=== PATIENT | male | born 1970 | race Caucasian/White ===

== ENCOUNTER 2017-06-28 07:45 | Observation (INO) | payer MEDICAID ==
[~2017-06-28] VITALS: Ht 167.6 cm; Wt 18.8 kg
[2017-06-28 07:49] VITALS: Ht 167.6 cm; Wt 18.8 kg
[2017-06-28] MEDS ORDERED: NITROGLYCERIN 2% 1 GM OINT PKT TD STA (08:19)
[2017-06-28] MEDS ORDERED: ASPIRIN 325 MG TAB PO STA (08:19)
--- NOTE | 2017-06-28 08:47 | ERA ---
ER Documentation Chief Complaint Date/Time DATE: 06/28/17 TIME: 08:44 Chief Complaint Complais of chest pain and palpitations HPI This is a 46-year-old male who states he was awoke at 5:30 AM this morning today with substernal chest pain. He describes the pain as a pressure and sharp stabbing pain with shortness of breath. He is not diaphoretic and had no dizziness but did have palpitations. The patient's father of sudden myocardial infarction at the age of 45. Patient does not know if he has high cholesterol or hypertension or diabetes. The patient does smoke. He said the pain lasted 30 minutes and it did not radiate anywhere. He is currently pain- free. ROS All systems reviewed and are negative except as per history of present illness. Medications Home Meds No Active Prescriptions or Reported Meds Allergies Allergies: Coded Allergies: No Known Allergy (Unverified , 06/28/17) PMhx/Soc Medical and Surgical Hx: pt denies Medical Hx, pt denies Surgical Hx Hx Alcohol Use: No Hx Substance Use: No Hx Tobacco Use: No Smoking Status: Never smoker FmHx Family History: No coronary disease Physical Exam Vitals Vital Signs Date Time Temp Pulse Resp B/P Pulse Ox O2 Delivery O2 Flow Rate FiO2 06/28/17 09:43 63 18 112/73 Room Air 06/28/17 08:26 Nasal Cannula 06/28/17 07:49 98.0 75 20 124/77 100 Physical Exam Const: [] Head: Atraumatic normocephalic Eyes: Normal Conjunctiva, PERRLA, ENT: Normal External Ears, Nose and Mouth. Neck: Full range of motion..~ No meningismus. Resp: Clear to auscultation bilaterally, no increased work of breathing Cardio: Regular rate and rhythm, no murmurs Abd: Soft, non tender, non distended. Normal bowel sounds Skin: No petechiae or rashes Back: No midline or flank tenderness Ext: No cyanosis, or edema Neur: Awake and alert, strength 5/5 sensation intact Psych: Normal Mood and Affect Result Diagram: 06/28/17 0822 06/28/17 0950 Results 24 hrs Laboratory Tests Test 06/28/17 08:22 06/28/17 09:50 White Blood Count 5.910^3/ul Red Blood Count 4.8910^6/ul Hemoglobin 15.3g/dl Hematocrit 44.7% Mean Corpuscular Volume 91.4fl Mean Corpuscular Hemoglobin 31.3pg Mean Corpuscular Hemoglobin Concent 34.2g/dl Red Cell Distribution Width 12.8% Platelet Count 40293^3/UL Mean Platelet Volume 9.7fl Neutrophils % 55.3% Lymphocytes % 30.8% Monocytes % 11.0% Eosinophils % 1.9% Basophils % 0.8% Nucleated Red Blood Cells % 0.0/100WBC Neutrophils # 3.310^3/ul Lymphocytes # 1.810^3/ul Monocytes # 0.710^3/ul Eosinophils # 0.110^3/ul Basophils # 0.110^3/ul Nucleated Red Blood Cells # 0.010^3/ul Prothrombin Time 12.4Sec Prothrombin Time Ratio 1.0 INR International Normalized Ratio 0.92 Activated Partial Thromboplast Time 32.0Sec Sodium Level 140mmol/L Potassium Level 4.1mmol/L Chloride Level 98mmol/L Carbon Dioxide Level 28mmol/L Anion Gap 18 Blood Urea Nitrogen 14mg/dl Creatinine 0.64mg/dl Glucose Level 100mg/dl Calcium Level 9.1mg/dl Total Bilirubin 0.5mg/dl Direct Bilirubin 0.00mg/dl Indirect Bilirubin 0.5mg/dl Aspartate Amino Transf (AST/SGOT) 38IU/L Alanine Aminotransferase (ALT/SGPT) 46IU/L Alkaline Phosphatase 65IU/L Troponin I < 0.012ng/ml Total Protein 7.0g/dl Albumin 4.1g/dl Globulin 2.90g/dl Albumin/Globulin Ratio 1.41 Current Medications Medications (Trade) Dose Ordered Sig/Li Route PRN Reason Start Time Stop Time Status Last Admin Dose Admin Aspirin (Aspirin) 325 mg ONCE STAT PO 06/28/17 08:19 06/28/17 08:21 DC 06/28/17 08:31 Nitroglycerin (Nitroglycerin 2% Oint) 1 inch ONCE STAT TD 06/28/17 08:19 06/28/17 08:21 DC 06/28/17 08:32 Procedures/MDM : Normal sinus rhythm heart rate 63, normal axis normal intervals normal OR QRS and QT. Impression normal EKG Chest x-ray is currently Patient received aspirin and nitroglycerin to chest wall We will admit the patient for cardiac workup due to smoking and strong family history of heart disease. Departure Diagnosis: Primary Impression: Chest pain Qualified Code: R07.9 - Chest pain, unspecified type Condition: Stable NILE OCONNOR DO Jun 28, 2017 08:47
--- NOTE | 2017-06-28 08:48 | RADRPT ---
PROCEDURE: Chest Radiograph. CLINICAL INDICATION: Chest pain TECHNIQUE: Single frontal chest radiograph. COMPARISON: None available FINDINGS: The cardiomediastinal silhouette is within normal limits. There is a 1.2 cm nodule overlying the le ft lateral lung base likely indicative of a nipple shadow. Are otherwise clear. No infiltrate or ef fusion is seen. The bones are intact. IMPRESSION: 1. 1.2 cm nodule overlying the left lateral lung base likely related to a nipple shadow. Recommend repeat chest radiograph with nipple markers as clinically indicated. 2. No evidence of acute cardiopulmonary disease. RPTAT: AA .Lucas Dodge MD, MD Date Time Electronically viewed and signed by .Lucas Dodge MD, on 06/28/2017 08:47 .B/
[2017-06-28 08:52] LABS: BASOPHIL # 0.1 10^3/ul (0.0-0.1); BASOPHILS % 0.8 % (0.0-2.0); EOSINOPHILS # 0.1 10^3/ul (0.0-0.5); EOSINOPHILS % 1.9 % (0.0-7.0); HEMATOCRIT 44.7 % (42.0-52.0); HEMOGLOBIN 15.3 g/dl (14.0-18.0); LYMPHOCYTES # 1.8 10^3/ul (0.8-2.9); LYMPHOCYTES % 30.8 % (15.0-51.0); MEAN CORPUSCULAR HEMOGLOBIN 31.3 pg (29.0-33.0); MEAN CORPUSCULAR HGB CONC 34.2 g/dl (32.0-37.0); MEAN CORPUSCULAR VOLUME 91.4 fl (82.0-101.0); MEAN PLATELET VOLUME 9.7 fl (7.4-10.4); MONOCYTE # 0.7 10^3/ul (0.3-0.9); NEUTROPHIL # 3.3 10^3/ul (1.6-7.5); NEUTROPHILS % 55.3 % (39.0-77.0); PLATELET COUNT 238 10^3/UL (140-415); RED BLOOD COUNT 4.89 10^6/ul (4.70-6.10); RED CELL DISTRIBUTION WIDTH 12.8 % (11.5-14.5); WHITE BLOOD COUNT 5.9 10^3/ul (4.8-10.8)
[2017-06-28 09:05] LABS: INR 0.92; PROTIME 12.4 Sec (12.2-14.2)
[2017-06-28 10:23] LABS: ALANINE AMINOTRANSFERASE 46 IU/L (13-69); ALBUMIN 4.1 g/dl (3.3-4.9); ALBUMIN/GLOBULIN RATIO 1.41; ALKALINE PHOSPHATASE 65 IU/L (42-121); ANION GAP 18 (8-16); ASPARTATE AMINO TRANSFERASE 38 IU/L (15-46); BILIRUBIN,INDIRECT 0.5 mg/dl (0-1.1); BILIRUBIN,TOTAL 0.5 mg/dl (0.2-1.3); BLOOD UREA NITROGEN 14 mg/dl (7-20); CALCIUM 9.1 mg/dl (8.4-10.2); CARBON DIOXIDE 28 mmol/L (21-31); CHLORIDE 98 mmol/L (97-110); CREATININE 0.64 mg/dl (0.61-1.24); GLUCOSE 100 mg/dl (70-220); POTASSIUM 4.1 mmol/L (3.5-5.1); SODIUM 140 mmol/L (135-144)
[2017-06-28 10:35] LABS: TROPONIN-I < 0.012 ng/ml (0.00-0.12)
[2017-06-28] MEDS ORDERED: ONDANSETRON 4 MG INJ IV PRN ×2 (12:30→14:00)
[2017-06-28] MEDS ORDERED: ACETAMINOPHEN 325 MG TAB PO PRN ×2 (12:30→14:00)
--- NOTE | 2017-06-28 13:45 | HP ---
Date/Time of Note Date/Time of Note DATE: 06/28/17 TIME: 13:44 Assessment/Plan Lines/Catheters IV [facility]ter [facility]from [facility]): Saline Lock HPI/ROS Admit Date/Time Admit Date/Time Jun 28, 2017 at 12:05 PMH/Family/Social Social History Smoking Status: Never smoker Exam/Review of Systems Vital Signs Vitals Vital Signs Date Time Temp Pulse Resp B/P Pulse Ox O2 Delivery O2 Flow Rate FiO2 06/28/17 09:43 63 18 112/73 Room Air 06/28/17 07:49 98.0 100 Labs Result Diagram: 06/28/17 0822 06/28/17 0950 VENU SERRANO NP Jun 28, 2017 13:45
[2017-06-28 13:51] VITALS: BP 106/65; PULSE 67; RESP 8
--- NOTE | 2017-06-28 13:58 | HP ---
Date/Time of Note Date/Time of Note DATE: 06/28/17 TIME: 13:48 Assessment/Plan VTE Prophylaxis VTE Prophylaxis Intervention: SCD's Lines/Catheters IV Catheter Type (from Nrsg): Saline Lock Assessment/Plan Assessment/Plan This is a 46-year-old male with no significant past medical history but with a family history of his father of myocardial infarction at 45-year -old, is being admitted for observation for chest pain evaluation. 1. Chest pain, assess for significance. Patient symptoms most likely represents anxiety versus musculoskeletal in origin. However, we will rule out acute coronary syndrome due to positive family history. -Observation to telemetry for serial troponin 3, and serial EKG. -Patient will be continued on aspirin, nitroglycerin sublingual PRN and morphine PRN 2.1.2 cm nodule overlying the left lateral lung base likely related to a nipple shadow. We will repeat chest x-ray. Plan: Monitor patient for any reoccurrence of pain. Monitor EKGs. Follow-up with serial troponins. Will also obtain a baseline TSH, fasting lipid panel, A1c, vitamin D and B12 levels. Consider 2D echocardiogram if indicated. Plan is to discharge patient home in morning if serial troponins and EKGs are negative. Patient does not need any DVT or PUD prophylaxis at this time as he is ambulatory and is on a diet. Approximately 60 minutes was spent on this history and physical. Patient was seen in collaboration with Dr. Collins. HPI/ALLEN Admit Date/Time Admit Date/Time Jun 28, 2017 at 12:05 Hx of Present Illness This is a 46-year-old male with no significant past medical history, who presented to the emergency room for evaluation of chest pain. Patient reported that he was experiencing sharp stabbing pain for around 10 seconds duration which woke him up early in the morning. Patient denied any shortness of breath, diaphoresis, dizziness, loss of consciousness, numbness/tingling, weakness, nausea, vomiting, abdominal pain or other constitutional symptoms. He reported that he is dad of sudden myocardial infarction at the age of 45. He denied smoking history. 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 At my encounter with the patient, his chest pain was completely resolved. In the emergency room initial lab works within acceptable range with a negative troponin. EKG without any acute ST or T-wave changes. Patient received aspirin and nitroglycerin in the emergency room and was admitted to rule out ACS due to strong family history of heart disease. ROS A 12 point review of system was assessed and is negative other than what is mentioned in HPI PMH/Family/Social Past Medical History See HPI Past Surgical History See HPI Social History Patient denied history of smoking or illicit drug use. He drinks alcohol occasionally. Smoking Status: Never smoker Exam/Review of Systems Vital Signs Vitals Vital Signs Date Time Temp Pulse Resp B/P Pulse Ox O2 Delivery O2 Flow Rate FiO2 06/28/17 09:43 63 18 112/73 Room Air 06/28/17 07:49 98.0 100 Exam Exam General: Well developed,adequately built, not in any acute distress . HEENT: Normocephalic, Atraumatic, No laceration or hematoma; Eyes: PEERL, Conjunctiva clear, Anicteric sclera Neck: Supple without any lymphadenopathy, nontender, no JVD, no carotid bruits, trachea midline, no thyromegaly Cardiac: S1, S2 auscultated, regular rhythm and rate, no mumurs or gallop Pulmonary: Normal respiratory effort. Chest clear to auscultation bilaterally, no adventitious breath sounds GI: Abdomen normal to inspection. Soft, non tender, non- distended, no masses, no rebound tenderness or guarding. Bowel sounds active on all four quadrants Genitourinary: Deferred Extremities: No cyanosis, clubbing, or edema. Pulses [2+] bilaterally. Full ROM on all four extremities. No focal weakness appreciated. Neurologic: Slightly anxious +.alert to person, place, time, and situation. Affect appropriate, intact sensation. Skin: Clean,dry, and intact. No ecchymosis, no rashes, or lesions Labs Result Diagram: 06/28/17 0822 06/28/17 0950 Medications Medications Current Medications Ondansetron HCl (Zofran Inj) 4 mg Q6H PRN IV NAUSEA AND/OR VOMITING; Start 10/04 at 14:00 Acetaminophen (Tylenol Tab) 650 mg Q6H PRN PO PAIN LEVEL 1-3 OR FEVER; Start at 14:00 Morphine Sulfate (morphine) 2 mg Q4H PRN IV SEVERE PAIN LEVEL 7-10; Start 06/28 at 14:00 Aspirin (Aspirin) 81 mg DAILY PO ; Start 06/29/17 at 09:00 Nitroglycerin (Nitroglycerin (Sl Tab) 0.4 Mg) 1 tab Q5M PRN SL ANGINA; Start at 14:00 VENU SERRANO NP Jun 28, 2017 13:57
[2017-06-28] MEDS ORDERED: NACL 0.9% 3 ML SYG IV SCH (14:00)
[2017-06-28] MEDS ORDERED: NITROGLYCERIN (SL) 0.4 MG TAB SL PRN (14:00)
[2017-06-28] MEDS ORDERED: morphine 2 MG INJ IV PRN (14:00)
[2017-06-28 15:26] LABS: CREATINE KINASE 67 IU/L (23-200)
[2017-06-28 15:39] LABS: TROPONIN-I < 0.012 ng/ml (0.00-0.12)
[2017-06-28 15:57] VITALS: BP 112/57; RESP 17
[2017-06-28 16:55] VITALS: PULSE 96
[2017-06-28 20:09] VITALS: BP 111/62; PULSE 74; RESP 18
[2017-06-28 20:24] LABS: CREATINE KINASE 45 IU/L (23-200)
[2017-06-28 20:46] LABS: CK-MB 1.58 ng/ml (0.0-2.4); TROPONIN-I < 0.012 ng/ml (0.00-0.12)
[2017-06-29] VITALS (10 sets, daily range): BP systolic 107–124; BP diastolic 58–78; PULSE 42–70; RESP 16–18
[2017-06-29 07:54] LABS: BASOPHIL # 0.1 10^3/ul (0.0-0.1); BASOPHILS % 0.9 % (0.0-2.0); EOSINOPHILS # 0.2 10^3/ul (0.0-0.5); EOSINOPHILS % 3.5 % (0.0-7.0); HEMATOCRIT 45.3 % (42.0-52.0); HEMOGLOBIN 14.8 g/dl (14.0-18.0); LYMPHOCYTES # 1.7 10^3/ul (0.8-2.9); LYMPHOCYTES % 30.1 % (15.0-51.0); MEAN CORPUSCULAR HEMOGLOBIN 30.1 pg (29.0-33.0); MEAN CORPUSCULAR HGB CONC 32.7 g/dl (32.0-37.0); MEAN CORPUSCULAR VOLUME 92.3 fl (82.0-101.0); MONOCYTE # 0.5 10^3/ul (0.3-0.9); MONOCYTES % 8.7 % (0.0-11.0); NEUTROPHIL # 3.2 10^3/ul (1.6-7.5); NEUTROPHILS % 56.6 % (39.0-77.0); PLATELET COUNT 225 10^3/UL (140-415); RED BLOOD COUNT 4.91 10^6/ul (4.70-6.10); WHITE BLOOD COUNT 5.7 10^3/ul (4.8-10.8)
[2017-06-29 08:12] LABS: ALBUMIN 4.2 g/dl (3.3-4.9); ALBUMIN/GLOBULIN RATIO 1.55; BILIRUBIN,INDIRECT 0.3 mg/dl (0-1.1); BILIRUBIN,TOTAL 0.3 mg/dl (0.2-1.3); CALCIUM 9.1 mg/dl (8.4-10.2); CHOL/HDL RATIO 2.1 RATIO; CREATININE 0.87 mg/dl (0.61-1.24); PHOSPHORUS 3.7 mg/dl (2.5-4.9); POTASSIUM 4.4 mmol/L (3.5-5.1); TOTAL PROTEIN 6.9 g/dl (6.1-8.1)
[2017-06-29] MEDS ORDERED: ASPIRIN 81 MG TAB PO SCH (09:00)
[2017-06-29 09:01] LABS: THYROID STIMULATING HORMONE 2.11 MIU/L (0.465-4.680)
--- NOTE | 2017-06-29 11:18 | RADRPT ---
Vent Rate: 56 bpm RR Interval: 0 msec DE Interval: 140 msec QRS Duration: 94 msec QT Interval: 412 msec QTC Interval: 397 msec P-R-T [place]: -8 - -11 - -17 degrees Sinus bradycardia Moderate voltage criteria for LVH, may be normal variant Inferior infarct , age undetermined Abnormal ECG Electronically Signed By: Ramirez Ponce [id number]
--- NOTE | 2017-06-29 11:21 | RADRPT ---
Vent Rate: 59 bpm RR Interval: 0 msec [place] Interval: 148 msec QRS Duration: 86 msec QT Interval: 440 msec QTC Interval: 435 msec P-R-T [place]: 67 - 73 - 71 degrees Sinus bradycardia Otherwise normal ECG Electronically Signed By: Ramirez Ponce [id number]
--- NOTE | 2017-06-29 12:51 | PN ---
Date/Time of Note Date/Time of Note DATE: 06/29/17 TIME: 12:50 Assessment/Plan VTE Prophylaxis VTE Prophylaxis Intervention: SCD's Lines/Catheters IV Catheter Type (from Nrs): Saline Lock Urinary Cath still in place: No Assessment/Plan Assessment/Plan 1. Chest pain, assess for significance. Patient symptoms most likely represents anxiety versus musculoskeletal in origin. However, we will rule out acute coronary syndrome due to positive family history. -Observation to telemetry for serial troponin 3, and serial EKG. -Patient will be continued on aspirin, nitroglycerin sublingual PRN and morphine PRN 2.1.2 cm nodule overlying the left lateral lung base likely related to a nipple shadow. We will repeat chest x-ray. Plan: Monitor patient for any reoccurrence of pain. Monitor EKGs. Follow-up with serial troponins. Will also obtain a baseline TSH, fasting lipid panel, A1c, vitamin D and B12 levels. Consider 2D echocardiogram if indicated. Plan is to discharge patient home in morning if serial troponins and EKGs are negative. Exam/Review of Systems Vital Signs Vitals Vital Signs Date Time Temp Pulse Resp B/P Pulse Ox O2 Delivery O2 Flow Rate FiO2 06/29/17 12:20 70 06/29/17 11:47 98.4 16 124/78 98 06/28/17 13:51 Room Air Intake and Output 06/28/17 06/28/17 06/29/17 14:59 22:59 06:59 Intake Total 300 ml 200 ml Balance 300 ml 200 ml Exam General: Well developed,adequately built, not in any acute distress . HEENT: Normocephalic, Atraumatic, No laceration or hematoma; Eyes: PEERL, Conjunctiva clear, Anicteric sclera Neck: Supple without any lymphadenopathy, nontender, no JVD, no carotid bruits, trachea midline, no thyromegaly Cardiac: S1, S2 auscultated, regular rhythm and rate, no mumurs or gallop Pulmonary: Normal respiratory effort. Chest clear to auscultation bilaterally, no adventitious breath sounds GI: Abdomen normal to inspection. Soft, non tender, non- distended, no masses, no rebound tenderness or guarding. Bowel sounds active on all four quadrants Genitourinary: Deferred Extremities: No cyanosis, clubbing, or edema. Pulses [2+] bilaterally. Full ROM on all four extremities. No focal weakness appreciated. Neurologic: Slightly anxious +.alert to person, place, time, and situation. Affect appropriate, intact sensation. Skin: Clean,dry, and intact. No ecchymosis, no rashes, or lesions Results Result Diagram: 06/29/17 0710 06/29/17 0710 Results 24 hrs Laboratory Tests Test 06/28/17 14:40 06/28/17 19:25 06/29/17 07:10 Creatine Kinase 67 45 Creatine Kinase Index 2.7 3.5 Creatinine Kinase MB (Mass) 1.80 1.58 Troponin I < 0.012 < 0.012 White Blood Count 5.7 Red Blood Count 4.91 Hemoglobin 14.8 Hematocrit 45.3 Mean Corpuscular Volume 92.3 Mean Corpuscular Hemoglobin 30.1 Mean Corpuscular Hemoglobin Concent 32.7 Red Cell Distribution Width 13.0 Platelet Count 225 Mean Platelet Volume 10.0 Neutrophils % 56.6 Lymphocytes % 30.1 Monocytes % 8.7 Eosinophils % 3.5 Basophils % 0.9 Nucleated Red Blood Cells % 0.0 Neutrophils # 3.2 Lymphocytes # 1.7 Monocytes # 0.5 Eosinophils # 0.2 Basophils # 0.1 Nucleated Red Blood Cells # 0.0 Sodium Level 138 Potassium Level 4.4 Chloride Level 100 Carbon Dioxide Level 30 Anion Gap 12 Blood Urea Nitrogen 15 Creatinine 0.87 Glucose Level 95 Hemoglobin A1c 5.4 Calcium Level 9.1 Phosphorus Level 3.7 Magnesium Level 2.0 Total Bilirubin 0.3 Direct Bilirubin 0.00 Indirect Bilirubin 0.3 Aspartate Amino Transf (AST/SGOT) 30 Alanine Aminotransferase (ALT/SGPT) 43 Alkaline Phosphatase 57 Total Protein 6.9 Albumin 4.2 Globulin 2.70 Albumin/Globulin Ratio 1.55 Triglycerides Level 52 Cholesterol Level 115 LDL Cholesterol, Calculated 52 HDL Cholesterol 53 Cholesterol/HDL Ratio 2.1 Vitamin B12 Level 569 Vitamin D 1,25-Dihydroxy 53.6 Thyroid Stimulating Hormone (TSH) 2.110 Medications Medications Current Medications Ondansetron HCl (Zofran Inj) 4 mg Q6H PRN IV NAUSEA AND/OR VOMITING; Start 10/04 at 14:00 Acetaminophen (Tylenol Tab) 650 mg Q6H PRN PO PAIN LEVEL 1-3 OR FEVER; Start at 14:00 Morphine Sulfate (morphine) 2 mg Q4H PRN IV SEVERE PAIN LEVEL 7-10; Start 06/28 at 14:00 Aspirin (Aspirin) 81 mg DAILY PO Last administered on 06/29/17t 08:55; Admin Dose 81 MG; Start 06/29/17 at 09:00 Nitroglycerin (Nitroglycerin (Sl Tab) 0.4 Mg) 1 tab Q5M PRN SL ANGINA; Start at 14:00 KAMILA VERDUGO MD Jun 29, 2017 12:51
[2017-06-29] MEDS ORDERED: FAMO-96 PO (12:52)
--- NOTE | 2017-06-29 12:52 | PDOCDIS ---
Discharge Instructions CONDITION Patient Condition: Good HOME CARE INSTRUCTIONS: Special Diet: cardiac diet ACTIVITY: Activity Restrictions: Slowly Increase Activity Rest between Activity Avoid heavy lifting Avoid Heavy Housework FOLLOW UP/APPOINTMENTS Follow-up Plan follow up with his own PMD through HMO insurance in 1-2 week after discharge KAMILA VERDUGO MD Jun 29, 2017 12:52
--- NOTE | 2017-06-29 21:59 | RADRPT ---
PROCEDURE: XR Chest. CLINICAL INDICATION: Pulmonary nodule on previous radiograph. Follow-up exam with nipple markers was recommended. TECHNIQUE: Anterior chest x-ray. COMPARISON: 06/28/2017 FINDINGS: The exam is labeled as being performed with nipple markers, however no radiopaque markers are seen i n the lateral lower lung zones in the expected area of nipples. There are a 3 tiny metallic markers which project over left heart border in the region of the main p ulmonary artery, right ventricle and left ventricle questioning if these represent misplaced nipple markers. The lungs are clear. No pleural effusion identified. There is no evidence of pneumothorax. The cardiomediastinal silhouette is unremarkable. The soft tissues are normal. Osseous structures are unremarkable. IMPRESSION: 1. No acute disease is seen in the chest. 2. No pulmonary nodules identified. 3. Exam is labeled as being performed with nipple markers, however no nipple markers are identified in the expected location of the nipples. RPTAT: II .Erik Kelly MD, MD Date Time Electronically viewed and signed by .Erik Kelly MD, on 06/29/2017 21:59 .M/
--- NOTE | 2017-07-01 23:01 | DS ---
Date/Time of Note Date/Time of Note DATE: 07/01/17 TIME: 22:58 Discharge Summary Admission/Discharge Info Admit Date/Time Jun 28, 2017 at 12:05 Discharge Date/Time Jun 29, 2017 at 13:25 Discharge Diagnosis 1. atypical chest pain, 2. Left lung nodule - 1.2 cm nodule overlying the left lateral lung base likely related to a nipple shadow. 3. pt is ruled out for ACS Patient Condition: Good Consults None Procedures None Hx of Present Illness This is a 46-year-old male with no significant past medical history, who presented to the emergency room for evaluation of chest pain. Patient reported that he was experiencing sharp stabbing pain for around 10 seconds duration which woke him up early in the morning. Patient denied any shortness of breath, diaphoresis, dizziness, loss of consciousness, numbness/tingling, weakness, nausea, vomiting, abdominal pain or other constitutional symptoms. He reported that he is dad of sudden myocardial infarction at the age of 45. He denied smoking history. 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 At my encounter with the patient, his chest pain was completely resolved. In the emergency room initial lab works within acceptable range with a negative troponin. EKG without any acute ST or T-wave changes. Patient received aspirin and nitroglycerin in the emergency room and was admitted to rule out ACS due to strong family history of heart disease. Hospital Course pt admitted to telemetry floor, had a serial troponi and EKG negative, BP stable , he has some symptoms of GERD- given prescription of Pepcid on discharge Home Meds Active Scripts Famotidine* (Pepcid*) 20 Mg Tablet, 20 MG PO DAILY, #30 TAB Prov:KAMILA VERDUGO MD 06/29/17 Follow-up Plan Follow up with his own PMD in 1-2 week after discharge through his [employer] Insurance Primary Care Provider Care Physician No Primary Time spent on discharge: > 30 minutes KAMILA VERDUGO MD Jul 01, 2017 23:01
== END 2017-06-29 13:25 | disposition home or self-care (01) ==
LOC: E/R 07:45 → INTOOBSV 12:05 → MS4 12:05
PROVIDERS: ADMIT Internal Medicine; ATTEND Internal Medicine
DX: R07.89 Other chest pain (principal); Z82.49 Family history of ischemic heart disease and other diseases of the circulatory system; R91.1 Solitary pulmonary nodule
CPT/HCPCS: 36415; 71010; 80053; 80061; 82550; 82553; 82607; 82652; 83036; 83735; 84100; 84443; 84484; 85025; 85610; 85730; 93005; Z7500; Z7502; Z7610; 99217; G0378

== ENCOUNTER 2019-01-05 07:32 | Emergency (ER) | payer SELFPAY ==
[~2019-01-05] VITALS: Ht 167.6 cm; Wt 97.6 kg
[~2019-01-05 07:32] MED LIST: FAMO-96 PO
[2019-01-05 07:34] VITALS: BP 137/72; PULSE 82; RESP 20; Ht 167.6 cm; Wt 97.6 kg
--- NOTE | 2019-01-05 08:44 | ERD ---
ER Documentation Chief Complaint Chief Complaint Patient here for juanito removal HPI 48-year-old male presents for evaluation for staple removal. He had a scalp laceration 2 months ago. Denies fevers, vomiting, visual changes, additional complaints. ROS All systems reviewed and are negative except as per history of present illness. Medications Home Meds Active Scripts Famotidine* (Pepcid*) 20 Mg Tablet, 20 MG PO DAILY, #30 TAB Prov:KAMILA VERDUGO MD 06/29/17 Allergies Allergies: Coded Allergies: No Known Allergy (Unverified , 06/28/17) PMhx/Soc History of Surgery: No Hx Neurological Disorder: No Hx Respiratory Disorders: No Hx Cardiac Disorders: No Hx Psychiatric Problems: No Hx Miscellaneous Medical Probl: No Hx Alcohol Use: No Hx Substance Use: No Hx Tobacco Use: No FmHx Family History: No diabetes, No coronary disease, No other Physical Exam Vitals Vital Signs Date Temp Pulse Resp B/P (MAP) Pulse Ox O2 O2 Flow FiO2 Time Delivery Rate 01/05/19 82 20 137/72 100 07:34 (93) Physical Exam Const: No acute distress Head: Atraumatic. [address] without erythema, bleeding, deformities. Eyes: Normal Conjunctiva ENT: Normal External Ears, Nose and Mouth. Neck: Full range of motion. No meningismus. Resp: Clear to auscultation bilaterally Cardio: Regular rate and rhythm, no murmurs Abd: Soft, non tender, non distended. Normal bowel sounds Skin: No petechiae or rashes Back: No midline or flank tenderness Ext: No cyanosis, or edema Neur: Awake and alert Psych: Normal Mood and Affect Procedures/MDM Juanito removed. Patient presents with a satisfactorily healing scalp laceration without signs or symptoms of intracranial bleeding, infection, additional complications. Discharged home with return precautions and primary care follow-up. The patient was stable with no new complaints during the ER course. Clinically, there is no current evidence to suggest meningitis, sepsis, acute abdomen, pneumonia, stroke, acute coronary syndrome, pulmonary embolism, aortic dissection or any other emergent condition appearing to require further evaluation or hospitalization. Patient counseled regarding my diagnostic impression and care plan. Prior to discharge all questions answered. Pt agrees with treatment plan and understands strict return precautions. Pt is instructed to follow up with primary care provider within 24-48 hours. Precautionary instructions provided including instructions to return to the ER if not improving or for any worsening or changing symptoms or concerns. Departure Diagnosis: Primary Impression: Encounter for removal of juanito Condition: Stable Patient Instructions: Staple Removal, No Complication Referrals: NO PRIMARY,CARE PHYSICIAN (PCP) Additional Instructions: Cheque otro vez con díaz doctor primario en el proximo cruz or regresa para mas o nueva simptomas. MARTHA ANDERSEN MD Jan 05, 2019 08:44
== END 2019-01-05 09:36 | disposition home or self-care (01) ==
LOC: FTE 07:32
DX: Z48.02 Encounter for removal of sutures (principal)
CPT/HCPCS: 99281

== ENCOUNTER → 2019-02-24 | Emergency (ER) | payer SELFPAY ==
[~2019-02-24] VITALS: Ht 172.7 cm; Wt 85.1 kg
[~2019-02-24] MED LIST changes: +ACET-141 PO; +IBUP-1542 PO; +KETOROLAC 30 MG INJ IM STA
[2019-02-24 15:49] VITALS: BP 136/84; PULSE 79; RESP 20; Ht 172.7 cm; Wt 85.1 kg
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
== END | disposition home or self-care (01) ==
LOC: FTE 15:43
DX: M79.671 Pain in right foot (principal); M79.672 Pain in left foot; R51 Headache
CPT/HCPCS: 73630; 96372; 99284; J1885

== ENCOUNTER 2019-05-10 22:21 | Emergency (ER) | payer SELFPAY ==
[~2019-05-10] VITALS: Ht 175.3 cm; Wt 81.9 kg
[~2019-05-10 22:21] MED LIST changes: -KETOROLAC 30 MG INJ IM STA
[2019-05-10 22:24] VITALS: BP 150/88; PULSE 91; RESP 18; Ht 175.3 cm; Wt 81.9 kg
== END 2019-05-10 23:34 | disposition left against medical advice (07) ==
LOC: FTE 22:21
DX: Z53.21 Procedure and treatment not carried out due to patient leaving prior to being seen by health care provider (principal)